=== PATIENT | male | born 1990 | race American Indian/Alaskan Native ===

== ENCOUNTER 2021-03-14 14:58 | Emergency (ER) | payer SELFPAY ==
[2021-03-14 15:55] VITALS: BP 120/79
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
--- NOTE | 2021-03-14 17:41 | Vascular Lab Report ---
DUPLEX DOPPLER LOWER EXTREMITY VEINS, RIGHT INDICATION / CLINICAL INFORMATION: RLE pain, edema, erythema, increased warmth. TECHNIQUE: Duplex doppler imaging was performed through the veins of the right lower extremity using venous comp ression and other maneuvers. COMPARISON: None available. FINDINGS: RIGHT COMMON FEMORAL VEIN: Negative. RIGHT FEMORAL VEIN: Negative. RIGHT POPLITEAL VEIN: Negative. RIGHT CALF VEINS: Negative. ADDITIONAL FINDINGS: None. IMPRESSION: 1. No sonographic evidence for DVT in the right lower extremity. Signer Name: Mukesh Ferrara MD Signed: 03/14/2021 5:36 PM Workstation Name: [id number]
[2021-03-14 17:56] LABS: Hemoglobin 13.7 gm/dl (11.8-15.2); Mean Corpuscular HGB Conc 34 % (32-34); Mean Corpuscular Volume 89 fl (84-94); Platelet Count 366 K/mm3 (140-440); Red Blood Count 4.59 M/mm3 (3.65-5.03); Red Cell Distribution Width 14.1 % (13.2-15.2)
[2021-03-14 18:19] LABS: Alanine Aminotransferase 41 units/L (7-56); Albumin 3.7 g/dL (3.9-5); BUN/Creatinine Ratio 9; Blood Urea Nitrogen 9 mg/dL (9-20); Calcium 9.6 mg/dL (8.4-10.2); Hemolysis Index 9; Uric Acid 4.9 mg/dL (3.5-7.6)
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
[2021-03-14 19:20] LABS: Band Neutrophils # (Manual) 0.2 K/mm3; Total Cells Counted 100
[2021-03-14 19:21] LABS: Giant Platelets Rare; Large Platelets Rare
[2021-03-14 19:22] LABS: Platelet Estimate Consistent w Auto; RBC Morphology Normal
== END 2021-03-14 18:56 | disposition home or self-care (01) ==
LOC: ED 14:58
DX: L03.115 Cellulitis of right lower limb (principal); M79.671 Pain in right foot; M25.571 Pain in right ankle and joints of right foot; Z79.899 Other long term (current) drug therapy
CPT/HCPCS: 36415; 80053; 84550; 85007; 85025